=== PATIENT | male | born 1975 | race American Indian/Alaskan Native ===

== ENCOUNTER 2021-06-23 14:39 | Emergency (ER) | payer SELFPAY ==
[2021-06-23 15:07] VITALS: BP 153/103
[2021-06-23] MEDS ORDERED: dexAMETHasone 4 MG/ML VIAL IM STA (15:21)
[2021-06-23] MEDS ORDERED: KETOROLAC 60 MG/2 ML INJ IM ONE (15:21)
--- NOTE | 2021-06-23 15:32 | Emergency Department Report ---
ED General Adult HPI - General Chief complaint: Extremity Injury, Upper Stated complaint: LEFT SHOULDER PAIN X 3 DAYS Time Seen by Provider: 06/23/21 15:07 Source: patient Mode of arrival: Ambulatory Limitations: No Limitations - History of Present Illness Initial comments: 45-year-old -[place] male patient presents with complaints of left shoul vitaliy pain x3 days. Patient denies any injury and states the pain does not radiate into his chest. He also denies any cough or shortness of breath. The pain is constant and worsens with movement. Patient states it is difficult to lift his left arm due to the pain. He denies any numbness/tingling/weakness in his arm. He also denies any neck pain or recent heavy lifting. Prior medical history includes hypertension. Pain is a 9/10 in severity per patient and unrelieved with Aleve - Related Data Previous Rx's Medication Instructions Recorded Last Taken Type Diclofenac Sodium 50 mg PO TID PRN #21 tablet. 06/23/21 Unknown Rx Prednisone [predniSONE 10 mg 10 mg PO .TAPER #1 tab.ds.pk 06/23/21 Unknown Rx (6-Day Pack, 21 Tabs)] methocarbamoL [Methocarbamol] 750 - 1,500 mg PO TID PRN #30 06/23/21 Unknown Rx tablet Allergies Allergy/AdvReac Type Severity Reaction Status Date / Time No Known Allergies Allergy Verified 06/23/21 14:46 ED Review of Systems ROS: Stated complaint: LEFT SHOULDER PAIN X 3 DAYS Other details as noted in HPI Constitutional: denies: chills, fever, malaise Respiratory: denies: cough, shortness of breath Cardiovascular: denies: chest pain Musculoskeletal: arthralgia. denies: joint swelling Neurological: denies: numbness, paresthesias ED Past Medical Hx - Medications Home Medications: Home Medications Medication Instructions Recorded Confirmed Last Taken Type Diclofenac Sodium 50 mg PO TID PRN #21 tablet. 06/23/21 Unknown Rx Prednisone [predniSONE 10 mg 10 mg PO .TAPER #1 tab.ds.pk 06/23/21 Unknown Rx (6-Day Pack, 21 Tabs)] methocarbamoL [Methocarbamol] 750 - 1,500 mg PO TID PRN #30 06/23/21 Unknown Rx tablet ED Physical Exam - General Limitations: No Limitations General appearance: alert, in no apparent distress - Head Head exam: Present: atraumatic, normocephalic - Eye Eye exam: Present: normal appearance - Respiratory Respiratory exam: Present: normal lung sounds bilaterally. Absent: respiratory distress - Cardiovascular Cardiovascular Exam: Present: regular rate, normal rhythm - Expanded Upper Extremity Exam Left Shoulder Exam: Present: tenderness (Noted to upper shoulder blade, at proximal biceps tendon, and AC joint; no swelling or skin changes noted), tenderness over AC joint. Absent: full ROM (Abduction limited secondary to pain), swelling, deformity, crepidus Forearm Wrist exam: Present: normal inspection Hand Wrist exam: Present: normal inspection Neuro motor exam: Present: wrist extension intact Vascular: Absent: vascular compromise, pulse deficit radial art, pulse deficit ulnar art - Neurological Exam Neurological exam: Present: alert, oriented X3 - Psychiatric Psychiatric exam: Present: normal affect, normal mood - Skin Skin exam: Present: warm, dry, intact, normal color. Absent: rash ED Course Vital Signs 06/23/21 14:43 Temperature 97.8 F Pulse Rate 89 Respiratory 18 Rate Blood Pressure 153/103 O2 Sat by Pulse 99 Oximetry ED Medical Decision Making - Radiology Data Radiology results: report reviewed LEFT SHOULDER 3 VIEW(S) INDICATION / CLINICAL INFORMATION: acute pain, no injury COMPARISON: None available. FINDINGS: BONES / JOINT(S): No acute fracture or subluxation. 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 SOFT TISSUES: Tiny calcifications at the distal rotator cuff attachment can be seen with calcific tendinitis. ADDITIONAL FINDINGS: None. - Medical Decision Making 45-year-old -[place] male patient presents with complaints of left shoulder pain x3 days. Patient denies any injury and states the pain does not radiate into his chest. He also denies any cough or shortness of breath. The pain is constant and worsens with movement. Patient states it is difficult to lift his left arm due to the pain. He denies any numbness/tingling/weakness in his arm. He also denies any neck pain or recent heavy lifting. Prior medical history includes hypertension. Pain is a 9/10 in severity per patient and unrelieved with Aleve X-ray shows arthritic changes of the left shoulder and possible calcific tendinitis. Patient placed in a shoulder sling and informed he will need to follow-up with orthopedics for further evaluation and treatment. His pain is significantly improved with meds given here in ED. Discussed in detail signs and symptoms that should prompt immediate return to the emergency department with patient who verbalizes understanding. He is otherwise well-appearing and stable for discharge home. Critical care attestation.: If time is entered above; I have spent that time in minutes in the direct care of this critically ill patient, excluding procedure time. ED Disposition Clinical Impression: Acute pain of left shoulder Disposition: 01 HOME / SELF CARE / HOMELESS Is pt being admited?: No Condition: Stable Instructions: Shoulder Pain, Tendinitis Prescriptions: Diclofenac Sodium 50 mg PO TID PRN #21 tablet. PRN Reason: pain methocarbamoL [Methocarbamol] 750 - 1,500 mg PO TID PRN #30 tablet PRN Reason: muscle spasm/tightness Prednisone [predniSONE 10 mg (6-Day Pack, 21 Tabs)] 10 mg PO .TAPER #1 tab.ds.pk Referrals: [facility] [Provider Group] - 3-5 Days Forms: Work/School Release Form(ED)
--- NOTE | 2021-06-23 16:23 | XRay Report ---
LEFT SHOULDER 3 VIEW(S) INDICATION / CLINICAL INFORMATION: acute pain, no injury COMPARISON: None available. FINDINGS: BONES / JOINT(S): No acute fracture or subluxation. Moderate DJD of the acromioclavicular and glenohu meral joints. SOFT TISSUES: Tiny calcifications at the distal rotator cuff attachment can be seen with calcific ten dinitis. ADDITIONAL FINDINGS: None. Signer Name: Nura Chaudhari MD Signed: 06/23/2021 4:19 PM Workstation Name: [id number]
== END 2021-06-23 18:18 | disposition home or self-care (01) ==
LOC: ED 14:39
DX: M25.512 Pain in left shoulder (principal); Z79.899 Other long term (current) drug therapy
CPT/HCPCS: 73030; 96372; 99283; J1100; J1885